=== PATIENT | female | born 1990 | race Hispanic/Latino ===

== ENCOUNTER → 2019-09-24 | Outpatient (CLI) | payer OTHER, MEDICAID ==
[~2019-09-24] MED LIST: ASPI-485 PO; FERR-39 PO; FOLI20CA PO; HYDR-3469 PO; PREN1TAB59 PO
== END | disposition home or self-care (01) ==
LOC: NPLAB 11:52
PROVIDERS: ATTEND Obstetrics & Gynecology
DX: Z11.59 Encounter for screening for other viral diseases (principal)
CPT/HCPCS: U0003-CS

== ENCOUNTER 2019-10-04 05:10 | Inpatient (IN) | payer OTHER, MEDICAID ==
[2019-09-24 09:49] VITALS: BP 118/58
[~2019-10-04] VITALS: Ht 170.2 cm; Wt 126.6 kg
[2019-10-04] VITALS (9 sets, daily range): BP systolic 92–117; BP diastolic 44–80
[~2019-10-04 05:10] MED LIST changes: +LACTATED RINGERS 1,000 ML ONE
[2019-10-04] MEDS ORDERED: ZITHROMAX 500 MG in NS 250ML 250 ML IV SCH (05:30)
[2019-10-04] MEDS: LACTATED RINGERS 1,000 ML IV PRN ×2 (06:00→07:33)
[2019-10-04 06:22] LABS: BASOPHIL % 0.2 % (0.0-0.2); EOSINOPHIL # 0.2 10^3/uL (0.0-0.2); EOSINOPHIL % 1.3 % (0.0-5.0); LYMPHOCYTES # 4.42 10^3/uL1 (1.0-4.8); MEAN CORP HGB 29.6 pg (26-34); MONOCYTES % 6.3 % (5.0-12.0); NEUTROPHIL # 10.6 10^3/uL (1.8-7.7); NEUTROPHILS % 64.5 % (41.0-85.0); PLATELET COUNT 281 10^3/uL (150-400); RED CELL DISTRIBUTION WIDTH 15.7 % (11.5-14.5)
[2019-10-04] MEDS ORDERED: ANCEF 2 GM/D5W 50ML IV SCH (07:30)
[2019-10-04] MEDS ORDERED: ANCEF ONE (07:48)
[2019-10-04] MEDS ORDERED: PITOCIN ONE (07:49)
[2019-10-04] MEDS ORDERED: DURAMORPH ONE (07:54)
--- NOTE | 2019-10-04 08:51 | NUR ---
STOODBY ON OF TWINS. I SUCTIONED 4CC CLEAR FLUID WITH DELEE OUT OF BABY BOY B. NO COMPLICATIONS. APGARS WERE 8 AT 1 MINUTE AND 9 AT 5 MINUTES ON BOTH BABIES.
--- NOTE | 2019-10-04 08:56 | NUR ---
Baby A- equipment set up and properly functioning prior to . Baby brought to warmer at 1 minute and 15 seconds. See nursing notes for scores. [employer] oral and nasal suction via bulb suction due to wet cry with no complications. bbs clear post suction. no grunting, nasal flaring, mild retractions noted but resolved at 5 minute marcella. turned care over to nurse at 10 minute marcella.
[2019-10-04] MEDS ORDERED: LACTATED RINGERS 1,000 ML ONE ×4 (09:28→21:57)
[2019-10-04] MEDS ORDERED: TORADOL ONE ×3 (09:39→19:19)
[2019-10-04] MEDS: ZOFRAN IV PRN ×2 (09:43→16:52)
[2019-10-04] MEDS: TORADOL IV SCH ×3 (09:48→20:33)
--- NOTE | 2019-10-04 09:58 | PRM.OPH ---
OPERATIVE REPORT OPERATIVE REPORT DATE OF SURGERY: 10/04/2019 PREOPERATIVE DIAGNOSIS: Di-Di-twin gestation, prior section, GDMA1, 38 weeks gestation, maternal obesity POSTOPERATIVE DIAGNOSIS: Same PROCEDURE: Repeat low transverse section with double layer uterine closure SURGEON: Claire Irene DO GORE SEAMER: Ruslan Panchal MD ANESTHESIA: Spinal BLOOD LOSS: QBL 805 mL. SPECIMENS: None FINDINGS: Twin Aviable male infant vertex position, Apgars 8/9 weight 3232 g, 7 pounds 2 ounces, Twin Bviable male vertex position, Apgars 8/9, 2759 g, 6 pounds 1.3 ounce URINE: 50 mL DISPOSITION: Stable to PACU PROCEDURE IN DETAIL: The patient was brought to the operating room where anesthesia was found to be adequate. She was then prepped and draped in the normal sterile fashion and placed in the supine position with leftward tilt. Time-out was performed. I proceeded with a Pfannenstiel skin incision that was made with a knife and extended to the fascial layer. The fascia was transected in the midline with Neves scissors. Nirmal clamps were used to tent the superior aspect of the fascial incision, which was tented up and the rectus muscle was taken down with sharp and blunt dissection. The same was done with the inferior aspect of the fascial incision. Hemostats and blunt dissection were used to separate the rectus muscles in the midline. The peritoneum was entered into with blunt dissection. The bladder blade was placed. The vesicouterine peritoneum was identified, tented up, and taken down with sharp and blunt dissection. The bladder blade was reinserted. The uterine incision was made with a knife and extended with the bandage scissors. Twin A was noted to be in vertex position. Membranes were ruptured and clear fluid was noted. The was delivered without complications and spontaneous cry was noted. Delayed cord clamp and cut were completed. The was handed to the awaiting pediatric team. Twin B was in vertex position. Membranes were ruptured and clear fluid was noted. was delivered without complications. Spontaneous cry was noted. Delayed cord clamp and cut were completed. The infant was handed off to the awaiting pediatric team. Cord blood x 2 was obtained. The placentas were expelled spontaneously and intact. The uterus was cleared of all clots and debris. The uterine incision was closed in a double layer closure. First, in a running locked fashion and second in an imbricating nonlocking fashion. Bilateral gutters were cleared of all clots and debris. The uterine incision was hemostatic. The rectus muscles and peritoneum were reapproximated in the midline with 2-0 chromic suture in an interrupted fashion. The fascia was closed in a running nonlocked fashion starting at the apices and meeting in the midline. Subcutaneous tissue was closed with 2-0 chromic suture in interrupted fashion. The skin was closed with 4-0 Monocryl. Andria wound dressing was placed. The patient tolerated the procedure well, she was taken to the recovery room in stable condition. CLAIRE IRENE DO Oct 04, 2019 09:58
[2019-10-04] MEDS ORDERED: D5LR 1000ML 1,000 ML IV ONE (10:00)
[2019-10-04] MEDS ORDERED: NARCAN IV PRN (10:00)
[2019-10-04] MEDS ORDERED: BENADRYL IV PRN ×2 (10:00)
[2019-10-04] MEDS ORDERED: NUBAIN IV PRN ×2 (10:00)
[2019-10-04] MEDS ORDERED: NORCO 5MG PO PRN ×2 (10:00)
[2019-10-04] MEDS ORDERED: REGLAN IV PRN (10:00)
[2019-10-04] MEDS ORDERED: NS 1000ML 1,000 ML IV ONE (10:00)
[2019-10-04] MEDS ORDERED: PHENERGAN IV PRN (10:00)
[2019-10-04] MEDS ORDERED: MORPHINE SULFATE IV PRN (10:00)
[2019-10-04] MEDS ORDERED: LACTATED RINGERS 1,000 ML IV ONE (10:00)
[2019-10-04] MEDS ORDERED: NORCO 10MG PO PRN (10:00)
[2019-10-04] MEDS ORDERED: LANOLIN HYDROUS TP PRN (10:00)
[2019-10-04] MEDS ORDERED: OXYTOCIN 30 UNIT/NS 500 ML 500 ML IV ONE (10:00)
[2019-10-04] MEDS ORDERED: BISAC-EVAC RC PRN (10:00)
[2019-10-04] MEDS ORDERED: GENASYME PO PRN (10:00)
[2019-10-04] MEDS ORDERED: PHENERGAN ONE (10:32)
[2019-10-04] MEDS ORDERED: ZOFRAN ONE (16:49)
[2019-10-04] MEDS ORDERED: D5LR 1000ML 1,000 ML ONE ×2 (20:19→23:24)
[2019-10-04] MEDS ORDERED: COLACE PO ONE (20:26)
[2019-10-04] MEDS: COLACE PO SCH (20:32)
[2019-10-04] MEDS ORDERED: LACTATED RINGERS 1,000 ML IV SCH (22:00)
[2019-10-05] MEDS ORDERED: D5LR 1000ML 1,000 ML IV ONE (01:00)
[2019-10-05] MEDS ORDERED: TORADOL ONE (04:04)
[2019-10-05] MEDS: TORADOL IV SCH (04:10)
[2019-10-05 06:11] LABS: BASOPHIL % 0.3 % (0.0-0.2); EOSINOPHIL # 0.3 10^3/uL (0.0-0.2); EOSINOPHIL % 2.2 % (0.0-5.0); LYMPHOCYTES # 4.95 10^3/uL1 (1.0-4.8); LYMPHOCYTES % 37.3 % (24.0-44.0); MEAN CORP HGB 29.9 pg (26-34); MONOCYTES # 0.9 10^3/uL (0.3-0.8); MONOCYTES % 6.9 % (5.0-12.0); NEUTROPHILS % 52.8 % (41.0-85.0); PLATELET COUNT 250 10^3/uL (150-400); RED CELL DISTRIBUTION WIDTH 15.9 % (11.5-14.5)
--- NOTE | 2019-10-05 07:03 | PRM.PN ---
PROGRESS NOTE S/O/A/P DATE: 10/05/19 S: Doing well. Good spirits/smiling. + Ambulate/void/tolerating reg diet/flatus. Pain controlled. O: VSSAF General: A&O x 4, no respiratory distress, comfortable Abdomen: soft, appropriate postdelivery tenderness without rebound/guarding, gravid uterus above the umbilicus, Prevena in place and functioning, w/o surrounding erythema/drainage/induration A: POD #1, stable/recovering P: Routine care. CHEPE ANNA MD Oct 05, 2019 07:03
[2019-10-05] MEDS ORDERED: COLACE PO ONE ×2 (09:59→21:42)
[2019-10-05] MEDS: COLACE PO SCH ×2 (10:02→21:48)
[2019-10-05] MEDS ORDERED: M-M-R II VACCINE WITH DILUENT SQ ONE (10:30)
[2019-10-05] MEDS ORDERED: MOTRIN ONE (17:16)
[2019-10-05] MEDS ORDERED: NORCO 5MG PO ONE (17:17)
[2019-10-05] MEDS: MOTRIN PO PRN (17:44)
[2019-10-06] MEDS ORDERED: MOTRIN ONE ×2 (00:26→09:15)
[2019-10-06] MEDS: MOTRIN PO PRN ×2 (00:32→09:19)
--- NOTE | 2019-10-06 07:29 | PRM.PN ---
PROGRESS NOTE S/O/A/P DATE: 10/06/19 S: Doing well. Good spirits/smiling. + Ambulate/void/tolerating reg diet/flatus. Pain controlled. O: VSSAF General: A&O x 4, no respiratory distress, comfortable Abdomen: soft, appropriate postdelivery tenderness without rebound/guarding, gravid uterus above the umbilicus, Prevena in place and functioning, w/o surrounding erythema/drainage/induration A: POD #2, stable/recovering P: Routine care, home, F/U next or Mon with Dr. Irene for Prevena removal. CHEPE ANNA MD Oct 06, 2019 07:29
--- NOTE | 2019-10-06 07:34 | PRM.DC ---
DISCHARGE SUMMARY Y DATE OF ADMISSION: 10/04/19 DATE OF DISCHARGE: 10/06/19 ADMITTING DIAGNOSIS: 1. 29 year old G 2 P 1001 at 38 0/7 weeks who has Previous Cesearean x 1. 3. Morbid Obesity. 4. Gestational Diabetes. 5. Rubella Non-Immune. 6. Tobacco. 7. Dichorionic/Diamniotic Twins. DISCHARGE DIAGNOSIS: 1. Status-post repeat Cesearean delivery. 2. Anemia. 3. Rest are the same. CONSULTS: None PROCEDURES & DATES: Repeat low transverse Cesearean delivery via previous Pfannstiel skin incision on 10/04/19. HOSPITAL COURSE: 29 year old G 2 P 1001 at 38 0/7 weeks who was admitted for a repeat Cesearean. Please see the operative summary for details. She was subsequently sent to Recovery Room, then to for the rest of her care. There, she was ambulating without difficulty, voiding spontaneously, tolerating regular diet without nausea/vomiting, with good return of flatus. Her pain was appropriately controlled. Her vital signs were stable and afebrile throughout her hospital course. Abdomen: on the day of discharge, her abdomen was soft. Appropriate esvin-incisional tenderness without rebound or guarding. Wound vac in place without surrounding erythema, drainage or induration. Hemoglobin and Hematocrit before surgery was 13.6 and 40.2, after was 10.5 and 31.3. Hepatitis B surface antigen negative, HIV negative. MEDICATIONS: Tramadol. DISPOSITION: Stable to home. PLAN: Follow-Up with Dr. Irene this or Mon for Prevena removal. CHEPE ANNA MD Oct 06, 2019 07:34
[2019-10-06] MEDS ORDERED: TRAM50TA PO (07:37)
--- NOTE | 2019-10-06 07:38 | PRM.DC ---
OB Discharge Summary Discharge Summary Patient History: Diabetes mellitus 32 MOTHER Hypertension 33 FATHER G8 SISTER No known health problems G8 SISTER G8 SISTER 19 CHILD No Family History of: Alzheimer's disease Asthma Cerebrovascular disorder Chronic obstructive pulmonary disease Congestive heart failure Diabetes insipidus Parkinson's disease Assessment & Plan Please see Discharge Summary note. CHEPE ANNA MD Oct 06, 2019 07:38
[2019-10-06] MEDS ORDERED: COLACE PO ONE (08:38)
[2019-10-06] MEDS: COLACE PO SCH (09:12)
[2019-10-06 09:38] VITALS: BP 120/62
== END 2019-10-06 13:00 | disposition home or self-care (01) | DRG 788 ==
LOC: LND 05:10
PROVIDERS: ADMIT Obstetrics & Gynecology; ATTEND Obstetrics & Gynecology
PROC: 10D00Z1 Extraction of Products of Conception, Low, Open Approach (ICD-10-PCS; principal; 2019-10-04 07:53)
DX: O34.211 Maternal care for low transverse scar from previous cesarean delivery (principal); O30.043 Twin pregnancy, dichorionic/diamniotic, third trimester; O99.214 Obesity complicating childbirth; E66.01 Morbid (severe) obesity due to excess calories; O24.429 Gestational diabetes mellitus in childbirth, unspecified control; Z3A.38 38 weeks gestation of pregnancy; Z37.2 Twins, both liveborn
CPT/HCPCS: 36415; 59025; 76825; 85025; 86318; 86885; 86900; 86901; 86921; 87340; G0378; J0456; J0690; J1885; J2405; J2550; J2590; J7050; J7120; J7121; 90707; J2274